=== PATIENT | male | born 1950 | race Caucasian/White ===

== ENCOUNTER 2024-06-18 15:30 | Outpatient (RCR) | payer MEDICARE, OTHER, SELFPAY | END 2024-06-18 23:59 | disposition home or self-care (01) | LOC: RPT 15:30 | PROVIDERS: ATTENDING PHYSICIAN Physician Assistant; FAMILY PHYSICIAN Internal Medicine | DX: C49.22 Malignant neoplasm of connective and soft tissue of left lower limb, including hip (principal); L90.5 Scar conditions and fibrosis of skin; Z73.6 Limitation of activities due to disability; R26.2 Difficulty in walking, not elsewhere classified; M62.81 Muscle weakness (generalized) | CPT/HCPCS: 97110; 97140; 97163; 97530 ==

== ENCOUNTER 2024-08-11 17:55 | Outpatient (RCR) | payer MEDICARE, OTHER, SELFPAY | END 2024-08-12 06:30 | disposition home or self-care (01) | LOC: RPT 17:55 | PROVIDERS: ATTENDING PHYSICIAN Physician Assistant; FAMILY PHYSICIAN Internal Medicine | DX: C49.22 Malignant neoplasm of connective and soft tissue of left lower limb, including hip (principal); L90.5 Scar conditions and fibrosis of skin; Z73.6 Limitation of activities due to disability; R26.2 Difficulty in walking, not elsewhere classified; M62.81 Muscle weakness (generalized) | CPT/HCPCS: 97110; 97140; 97530 ==

== ENCOUNTER → 2024-10-19 11:50 | Outpatient (REF) | payer MEDICARE, OTHER, SELFPAY | LOC: PAVMRI 11:50 | PROVIDERS: ATTENDING PHYSICIAN Physician Assistant Surgical; FAMILY PHYSICIAN Internal Medicine | DX: M70.22 Olecranon bursitis, left elbow (principal) | CPT/HCPCS: 73221 ==

== ENCOUNTER 2025-05-10 06:33 | Day surgery (SDC) | payer MEDICARE, OTHER, SELFPAY | END 2025-05-10 14:23 | disposition home or self-care (01) | LOC: GI 06:33 | PROVIDERS: ATTENDING PHYSICIAN Internal Medicine Gastroenterology | DX: Z12.11 Encounter for screening for malignant neoplasm of colon (principal); D12.2 Benign neoplasm of ascending colon; D12.3 Benign neoplasm of transverse colon; K64.8 Other hemorrhoids; Z83.719 Family history of colon polyps, unspecified | CPT/HCPCS: 45385; 88305 ==